=== PATIENT | female | born 1995 | race Asian ===

== ENCOUNTER 2021-05-07 11:47 | Emergency (ER) | payer OTHER, MEDICAID, SELFPAY ==
[2021-05-07 11:58] VITALS: BP 113/73; PULSE 64; RESP 13; TEMP 36.7; O2SAT 100; BMI 30.7
[2021-05-07 13:12] LABS: RBC Urine 0-1/HPF (0-5/HPF); WBC Urine 0-1/HPF (0-5/HPF)
[2021-05-07 13:13] LABS: Bacteria Urine Few (2-10); Culture Indicated Urine Cult Not Indicated; Squamous Epithelial Cell Urine 1-5 /HPF (0-5/HPF); Transitional Epi Cells Urine 0-1/HPF (0-5/HPF)
--- NOTE | 2021-05-07 14:04 | ED.FEMALEGU ---
HPI - Female Genitourinary General Chief complaint: Vaginal Bleeding Stated complaint: Spotting last 4 days with small clots Time Seen by Provider: 05/07/21 13:55 Source: patient Mode of arrival: Ambulatory History of Present Illness HPI Narrative: Patient is a 25-year-old female presenting today with light vaginal spotting. She states that it is just mild dark brown mostly when she wipes occasionally in her underwear. She was concerned that she may be she took home test that were negative. She also has a history of PCOS she is supposed to be taking metformin and control she does not like taking metformin. She has appointment with her primary care doctor next week an appointment with her Ob June 11. The no painful or frequent urination she has minimal cramping no fevers chills or back pain. She is Related Data Allergies Allergy/AdvReac Type Severity Reaction Status Date / Time No Known Drug Allergies Allergy Verified 05/07/21 12:02 Review of Systems Review of Systems Narrative: GENERAL: Denies chills,fever HEENT: Denies throat pain RESPIRATORY: Denies dyspnea, cough, wheezing CARDIOVASCULAR: Denies chest pain, palpitations GASTROINTESTINAL: Denies nausea, vomiting COMMUNITY COORDINATOR: See HPI MUSCULOSKELETAL: Denies extremity pain, injury SKIN: No rash, no laceration, no pruritus NEUROLOGIC: Denies weakness, dizziness, headache, numbness 8 point review of systems is negative except for those stated above and HPI Patient History alcohol intake frequency: holidays/special occasions only Substance Use Type: does not use Exam Initial Vital Signs Initial Vital Signs: Vital Signs Temperature 98.1 F 05/07/21 11:58 Pulse Rate 64 05/07/21 11:58 Respiratory Rate 13 05/07/21 11:58 Blood Pressure 113/73 05/07/21 11:58 Pulse Oximetry 100 05/07/21 11:58 GENERAL: Well-appearing, well-nourished and in no acute distress. CARDIOVASCULAR: peripheral pulses in tact, cap refill <2 sec RESPIRATORY: No respiratory distress, speaks in full sentences without difficulty ABDOMEN: Soft, nontender, no guarding or rebound EXTREMITIES: Normal range of motion, no clubbing or edema. Neurovascularly intact NEUROLOGICAL: Cranial nerves II through XII grossly intact. Normal gait and speech. SKIN: Warm, dry, no petechiae, no rashes or lesions. Course Orders Ordered: ED Orders 05/07/21 12:07 Urine Microscopic Stat Vital Signs Vital signs: Vital Signs - 8 hr 05/07/21 11:58 05/07/21 14:11 Temperature 98.1 F Pulse Rate 64 64 Respiratory Rate 13 18 Blood Pressure 113/73 110/67 Pulse Oximetry 100 100 MDM - Female Genitourinary Lab Data Labs: Lab Results 05/07/21 Range/Units 12:07 Urine RBC 0-1/hpf (0-5/HPF) Urine WBC 0-1/hpf (0-5/HPF) Ur Squamous Epith Cells 1-5 /hpf (0-5/HPF) Ur Transition Epith Cell 0-1/hpf (0-5/HPF) Urine Bacteria Few (2-10) H (None) Ur Culture Indicated? Cult not indicated Point of Care Testing Test Results Negative Urine Dip Bedside Urine Glucose Negative Bedside Urine Bilirubin - Negative Bedside Urine Ketone - Negative Urine Specific [facility] [place] 1.015 Bedside Urine Occult Blood +/- Bedside Urine pH 6.0 Bedside Urine Protein - Negative Bedside Urine Urobilinogen - Negative Bedside Urine Nitrite - Negative Bedside Urine Leukocytes - Negative Esterase MDM Narrative Medical decision making narrative: Patient has good follow-up the. Sounds as though she has very minimal brownish spotting. Urine is negative for infection and Sounds like abnormal uterine bleeding which is not excessive. She has very minimal pain. In in negative urine test today. Last menstrual cycle was April. I did recommend that she repeat frequency test in a couple weeks but likely not . Discharge Plan Departure Patient Disposition: Home Clinical Impression: Vaginal bleeding Instructions: DI for Vaginal Bleeding Activity Restrictions/Additional Instructions: *You have been diagnosed with vaginal bleeding *What to do: At this time please continue to follow-up with your primary care provider. He may need a repeat pelvic ultrasound if bleeding continues. They also recommend repeat test in a few weeks. *Continue to take medications as directed *Follow up with your primary care provider in 2-3 days or call [phone] *Return to ER if you should have vaginal bleeding heavy more than 2 super pads in 1 hour, intense abdominal cramping, dizziness lightheadedness or any new, worsening or concerning symptoms Referrals: Parviz David [Other]
[2021-05-07 14:11] VITALS: BP 110/67; PULSE 64; RESP 18; O2SAT 100
== END 2021-05-07 14:12 | disposition home or self-care (01) ==
PROVIDERS: Emergency Provider Emergency Medicine
DX: N93.9 Abnormal uterine and vaginal bleeding, unspecified (principal)
CPT/HCPCS: 81003; 81015; 81025; 99282